=== PATIENT | male | born 1980 | race Caucasian/White ===

== ENCOUNTER → 2023-12-22 16:30 | Outpatient (CLI) | payer OTHER, SELFPAY ==
--- NOTE | 2023-12-22 16:36 | DI.US.S_ITS ---
PROCEDURE: US ABDOMEN COMPLETE INDICATIONS: INC LFTS. R/O RENAL TUMORS HEPATOSPLENOMEGALY TECHNIQUE: Real-time scanning was performed of the abdominal and retroperitoneal organs, with image documentation. COMPARISON: None. FINDINGS: Liver: Liver is normal in size and homogeneous in echotexture. Solitary echogenic mass within the right lobe measuring 7 mm. Gallbladder: No gallstones identified. Normal gallbladder wall. No pericholecystic fluid. Negative sonographic Ruby sign. Biliary ducts: Intrahepatic bile ducts are non-dilated. Extrahepatic bile duct caliber measures 3.8 mm. Normal is 6-7 mm or less in diameter, or 10 mm or less post-cholecystectomy. Pancreas: Visualized portions of the pancreas are sonographically normal. Spleen: Spleen is normal in size and homogeneous in echotexture. Kidneys: Kidneys are normal in size and echotexture. Right kidney measures 9.9 cm long; left kidney measures 9.3 cm long. No hydronephrosis or nephrolithiasis. No solid masses. Aorta: Visualized aorta is normal in caliber at less than 3 cm. Iliacs: Proximal common iliac arteries are normal in caliber at less than 2.5 cm. IVC: Intrahepatic inferior vena cava is patent. Miscellaneous: No free abdominal fluid. IMPRESSION: Probable cavernous hemangioma present given the sonographic appearance. Recommend sequential follow up sonography at 6, 12 and 24 month intervals for surveillance. Dictated by: Alex Lentz [facility] Interpreted: Ayesha Estevez MD on 12/23/2023 at 12:25 Transcribed by: TONE on 12/23/2023 at 12:26 Approved by: Ayesha Estevez MD, PhD on 12/28/2023 at 11:14
== END ==
LOC: US 16:35
PROVIDERS: Referring Provider Physician Assistant; Visit Provider Physician Assistant
DX: K76.9 Liver disease, unspecified (principal); R79.89 Other specified abnormal findings of blood chemistry
CPT/HCPCS: 76700

== ENCOUNTER → 2024-06-20 16:20 | Outpatient (CLI) | payer OTHER, SELFPAY ==
--- NOTE | 2024-06-20 16:23 | DI.US.S_ITS ---
PROCEDURE: US ABDOMEN LIMITED INDICATIONS: SUSPECTED CAVERNOUS HEMANGIOMA TECHNIQUE: Real-time focused scanning was performed of the abdomen, with image documentation. COMPARISON: [facility], [place], US ABDOMEN COMPLETE, 12/22/2023, 16:42. FINDINGS: The liver demonstrates normal size. The liver demonstrates generalized moderately increased echogenicity. This decreases ultrasound sensitivity for detection of hepatic masses. No focal liver lesions are seen on these images. No findings of gallstones or sludge are seen. The gallbladder wall is not thickened, measuring 3 mm or less. No specific pericholecystic fluid is seen. The sonographic Ruby sign is negative. There is no biliary dilatation, the common bile duct measures 3 mm. No significant pancreatic abnormality is seen on these images. IMPRESSION: Generalized fatty liver infiltration of the liver, without a focal liver lesion now seen. Dictated by: Jeremy Aguirre M.D. on 06/20/2024 at 17:29 Approved by: Jeremy Aguirre M.D. on 06/20/2024 at 17:30
== END ==
LOC: US 16:22
PROVIDERS: PCP Physician Assistant; Referring Provider Physician Assistant; Visit Provider Physician Assistant
DX: R16.0 Hepatomegaly, not elsewhere classified (principal); K76.0 Fatty (change of) liver, not elsewhere classified
CPT/HCPCS: 76705